=== PATIENT | male | born 1950 | race Caucasian/White ===

== ENCOUNTER → 2017-01-05 | Outpatient (CLI) | payer MEDICARE, BC | LOC: RAD 10:11 | PROVIDERS: ATTEND Specialist | DX: M54.2 Cervicalgia (principal) | CPT/HCPCS: 70360 ==

== ENCOUNTER → 2017-01-11 | Outpatient (CLI) | payer MEDICARE, BC | LOC: RAD 09:03 | PROVIDERS: ATTEND Specialist | DX: C85.80 Other specified types of non-Hodgkin lymphoma, unspecified site (principal) | CPT/HCPCS: 71260 ==